=== PATIENT | female | born 1990 | race American Indian/Alaskan Native ===

== ENCOUNTER 2020-05-28 10:38 | Outpatient (CLI) | payer OTHER ==
[2020-05-29] MEDS ORDERED: PRENATABS RX T1 EACH PO (10:26)
== END 2020-05-28 17:35 | disposition home or self-care (01) ==
LOC: OBS/DEL 10:38
PROVIDERS: ATTEND Obstetrics & Gynecology
DX: O47.1 False labor at or after 37 completed weeks of gestation (principal)

== ENCOUNTER 2020-05-29 09:20 | Inpatient (IN) | payer OTHER ==
[~2020-05-29] VITALS: Ht 165.1 cm; Wt 70.8 kg
[2020-05-29] MEDS ORDERED: PRENATABS RX T1 EACH PO (10:26)
== END 2020-05-31 11:23 | disposition home or self-care (01) | DRG 807 ==
LOC: LDR 09:20 → SURG-SUITE 09:20
PROVIDERS: ADMIT Obstetrics & Gynecology; ATTEND Obstetrics & Gynecology
PROC: 10E0XZZ Delivery of Products of Conception, External Approach (ICD-10-PCS; principal; 2020-05-29)
PROC: 4A0HXFZ Measurement of Products of Conception, Cardiac Rhythm, External Approach (ICD-10-PCS; 2020-05-29)
DX: O80 Encounter for full-term uncomplicated delivery (principal); Z37.0 Single live birth; Z3A.39 39 weeks gestation of pregnancy